=== PATIENT | male | born 1940 | race Caucasian/White ===

== ENCOUNTER 2016-06-11 21:33 | Emergency (ER) | payer OTHER ==
[~2016-06-11 21:33] MED LIST: CARDIZEM C1 PO; COUMADIN5 MG PO; DYAZIDE1 CAP PO; ENDOCET1 TA3 PO; LASIX20 MG PO; LOVENOX150 MG/ML SC; METFORMIN HCL500 M3; NEURONTIN300 MG PO; PANTOPRAZOLE SO40 MG PO; PROAIR HFA IN; ZESTRIL5 MG PO
--- NOTE | 2016-06-11 23:02 | DIAGNOSTIC IMAGING REPORT ---
PROCEDURE: XR CHEST 1 VIEW INDICATION: SHORTNESS OF BREATH, initial encounter TECHNIQUE: Portable AP view 10:44 p.m. COMPARISON: Chest x-ray 05/30/2016 FINDINGS: Stable moderate elevation of the left hemidiaphragm with left basilar atelectasis. Right lung is clear. Left heart border obscured by the elevated hemidiaphragm. Normal pulmonary vascularity. Severe dextroscoliosis. No significant interval change. IMPRESSION: 1. Stable chest 2. Elevated left hemidiaphragm
--- NOTE | 2016-06-12 00:52 | ED CLINICAL REPORT ---
Clinical Report - Physicians/Mid Levels [facility] [address] [place] [address] 06/11/2016 21:35 Patient: SERENA CURIEL Time Seen: 21:37. Arrived- By private vehicle. Historian- patient. HISTORY OF PRESENT ILLNESS Chief Complaint: DYSPNEA and palpitations. This started just prior to arrival and is still present. The dyspnea is described as mild. (nothing improves or worsens). No cough, sputum production, fever, sweating episodes or wheezing. No chills, dyspnea on exertion, chest pain or discomfort or calf pain. No foot swelling, orthopnea, anxiety, dizziness or tingling. No numbness. The patient has had palpitations. (Pt states that sx have improved since the last time he was seen here, when he was started on digoxin, and had a long-acting diltiazem preparation added to his regimen. He states he came in tonight, because he felt his HR had gone up, and wanted to "catch it early."). Similar symptoms previously: Several times. ( PT is in the midst of work-up for atrial flutter, and is scheduled to see a it account manager next week.). Recent medical care: The patient was seen recently at this facility in the emergency department. REVIEW OF SYSTEMS The patient has not had weight loss. No muscle aches, eye irritation, sore throat, nasal discharge or sinus drainage. No nausea, vomiting, abdominal pain, diarrhea or black stools. No bloody stools, headache, fainting episodes, blurred vision or difficulty with urination. No skin rash, enlarged lymph nodes or joint pain. All systems otherwise negative, except as recorded above. PAST HISTORY Problems: Atrial Flutter. Scoliosis. Hypertension. Back Pain. Additional Surgeries: Gastric Bypass. Neck Surgery. Total Hip Replacement. Medications: Diltiazem HCl Oral. Dyazide Oral (Capsule 37.5-25 mg) 1 capsule, daily. Endocet Oral (Tablet 10-325 mg) 1 tablet, 4 x daily. Furosemide Oral. Gabapentin Oral. Lisinopril Oral 5 mg, daily. MetFORMIN HCl Oral. Oxycodone-Acetaminophen Oral 10/325 mg, 4x a day. Pantoprazole Sodium Oral. Pravastatin Sodium Oral. ProAir HFA Inhalation. Triamterene-HCTZ Oral. Warfarin Sodium Oral. Allergies: No Known Drug Allergy. SOCIAL HISTORY Never smoker. No alcohol use or drug use. ADDITIONAL NOTES The nursing notes have been reviewed. PHYSICAL EXAM Vital Signs: 06/11/2016 21:39 BP: 147/85. HR: 62. RR: 20. O2 saturation: 97%. Temp: 97.9 F. Pain level now: 12/19. Have been reviewed. Appearance: Alert. No acute distress. Eyes: Pupils equal, round and reactive to light. Eyes normal inspection. ENT: Nose normal. Neck: Normal inspection. Neck supple. CVS: Tachycardia. Abnormal rhythm, which is irregularly irregular. Heart sounds normal. Pulses normal. Respiratory: No respiratory distress. Breath sounds normal. Abdomen: Soft and nontender. Back: Normal inspection. No CVA tenderness. Skin: Skin warm and dry. Normal skin color. No rash. Normal skin turgor. Extremities: Extremities exhibit normal ROM. No lower extremity edema. Neuro: Oriented X 3. No motor deficit. No sensory deficit. LABS, X-RAYS, AND EKG EKG: Atrial flutter. Tachycardia. Abnormal P waves. Left anterior fascicular block. RBBB. Normal axis. Normal ST and T waves, QT and QTc. Prior EKG unavailable. The study has been interpreted contemporaneously by me. The study has been independently viewed by me. The EKG appears to be a good tracing. I agree with and confirm the computer reading of the EKG. Rhythm Strip #1: Time: (5277). Rate= 107. Atrial flutter. Irregularly irregular rhythm. No ectopy. Conduction normal. Normal ST segments and T waves. The study was interpreted by me. Chest X-ray: No acute disease. Normal lung markings present. Normal heart size. Mediastinum normal. Great vessels normal. Soft tissues normal. No infiltrate. No fracture. No bony lesion present. Views: AP (portable). Technique: good. The X-rays were independently viewed by me and interpreted contemporaneously by me. Prior films were not available for comparison. Laboratory Tests: CBC w Diff: (ROSEMARIE: 06/11/2016 22:00) ( MsgRcvd 06/11/2016 22:41) Final results Test Result Flag Units (Reference) WHITE BLOOD COUNT 9.1 K/uL (4.5-11.5) RED BLOOD COUNT 5.82 M/uL (4.50-5.90) HEMOGLOBIN 15.0 gm/dL (13.5-17.5) HEMATOCRIT 47.5 % (41.0-53.0) MEAN CELL VOLUME 82 fL (80-100) MEAN CORPUSCULAR HGB 26 pg (26-34) MEAN CORPUSCULAR HGB CONC 32 g/dL (31-37) RED CELL DISTRIBUTION WIDTH 15.5 H % (11.6-14.8) PLATELET COUNT 288 K/uL (150-400) NEUTROPHIL % 69.5 % (50-75) LYMPH % 19.6 L % (25-40) MONO % 9.4 % (3-14) EOSINOPHIL % 1.1 % (0-4) BASOPHIL % 0.4 % (0-2) BNP: (ROSEMARIE: 06/11/2016 22:00) ( [facility] 06/11/2016 22:53) Final results Test Result Flag Units (Reference) B-TYPE NATRIURETIC PEPTIDE 97.6 pg/ml (5-100) CHEM 13 PANEL: (ROSEMARIE: 06/11/2016 22:00) ( [facility] 06/11/2016 23:00) Final results Test Result Flag Units (Reference) GLUCOSE 121 H mg/dL (70-110) BUN 29 H mg/dL (7-18) CREATININE 1.2 mg/dL (0.6-1.3) Estimated GFR >60 mL/min Estimated GFR- >60 mL/min Note: Persistent reduction over 3 months in eGFR<60 mL/min/1.73 m2 defines CKD. Patients with eGFR values>=60 mL/min/1.73 m2 may also have CKD if evidence ofpersistent proteinuria. Additional information may be foundat www.kidney.org. SODIUM 142 mmol/L (136-145) POTASSIUM 4.1 mmol/L (3.5-5.1) CHLORIDE 103 mmol/L (98-107) CARBON DIOXIDE 30 mmol/L (21-32) CALCIUM 9.1 mg/dL (8.5-10.1) TOTAL PROTEIN 7.5 g/dL (6.4-8.2) ALBUMIN 3.6 g/dL (3.3-5.0) BILIRUBIN, TOTAL 0.4 mg/dL (0.0-1.0) ALKALINE PHOSPHATASE 79 U/L (46-116) AST (SGOT) 19 U/L (15-37) ALT (SGPT) 33 U/L (12-78) MAGNESIUM 2.0 mg/dL (1.8-2.4) CPK 45 U/L (24-260) TROPONIN I <0.05 ng/mL (0.00-1.5) TROPONIN REFERENCE RANGE:<0.1 NEGATIVE0.1-1.5 INDETERMINANT>1.5 POSITIVE . Pulse Oximetry: 06/11/2016 21:39 O2 saturation: 97%. (FIO2 - room air). Interpretation: normal. PROGRESS AND PROCEDURES Course of Care: PT was treated with a single dose of IV diltiazem, and observed in the ED. His HR had been minimally elevated, and responded well to the medication. No further emergent condition identified. Patient counseled in person regarding the patient's stable condition, test results, diagnosis and need for follow-up. Concerns were addressed. Old medical records reviewed. Disposition: Discharged. Condition: stable and improved. CLINICAL IMPRESSION Chronic atrial fibrillation with uncontrolled rate. INSTRUCTIONS Warnings: GENERAL WARNINGS: Return or contact your physician immediately if your condition worsens or changes unexpectedly, if not improving as expected, or if other problems arise. Your Current Medications: CONTINUE TAKING THE FOLLOWING MEDICATIONS: Diltiazem HCl Oral. Dyazide Oral : Capsule 37.5-25 mg, 1 capsule daily. Endocet Oral : Tablet 10-325 mg, 1 tablet 4 x daily. Furosemide Oral. Gabapentin Oral. Lisinopril Oral : 5 mg daily. MetFORMIN HCl Oral. Oxycodone-Acetaminophen Oral : 10/325 mg 4x a day. Pantoprazole Sodium Oral. Pravastatin Sodium Oral. ProAir HFA Inhalation. Triamterene-HCTZ Oral. Warfarin Sodium Oral. Follow-up: Follow up with a it account manager as scheduled. Understanding of the discharge instructions verbalized by patient. (Electronically signed by Beth Demarco MD 06/16/2016 7:07)
--- NOTE | 2016-06-12 00:52 | ED CLINICAL REPORT ---
Clinical Report - Physicians/Mid Levels [facility] [address] [place] [address] 06/11/2016 21:35 Patient: SERENA CURIEL Time Seen: 21:37. Arrived- By private vehicle. Historian- patient. HISTORY OF PRESENT ILLNESS Chief Complaint: DYSPNEA and palpitations. This started just prior to arrival and is still present. The dyspnea is described as mild. (nothing improves or worsens). No cough, sputum production, fever, sweating episodes or wheezing. No chills, dyspnea on exertion, chest pain or discomfort or calf pain. No foot swelling, orthopnea, anxiety, dizziness or tingling. No numbness. The patient has had palpitations. (Pt states that sx have improved since the last time he was seen here, when he was started on digoxin, and had a long-acting diltiazem preparation added to his regimen. He states he came in tonight, because he felt his HR had gone up, and wanted to "catch it early."). Similar symptoms previously: Several times. ( PT is in the midst of work-up for atrial flutter, and is scheduled to see a electric motor repairer next week.). Recent medical care: The patient was seen recently at this facility in the emergency department. REVIEW OF SYSTEMS The patient has not had weight loss. No muscle aches, eye irritation, sore throat, nasal discharge or sinus drainage. No nausea, vomiting, abdominal pain, diarrhea or black stools. No bloody stools, headache, fainting episodes, blurred vision or difficulty with urination. No skin rash, enlarged lymph nodes or joint pain. All systems otherwise negative, except as recorded above. PAST HISTORY Problems: Atrial Flutter. Scoliosis. Hypertension. Back Pain. Additional Surgeries: Gastric Bypass. Neck Surgery. Total Hip Replacement. Medications: Diltiazem HCl Oral. Dyazide Oral (Capsule 37.5-25 mg) 1 capsule, daily. Endocet Oral (Tablet 10-325 mg) 1 tablet, 4 x daily. Furosemide Oral. Gabapentin Oral. Lisinopril Oral 5 mg, daily. MetFORMIN HCl Oral. Oxycodone-Acetaminophen Oral 10/325 mg, 4x a day. Pantoprazole Sodium Oral. Pravastatin Sodium Oral. ProAir HFA Inhalation. Triamterene-HCTZ Oral. Warfarin Sodium Oral. Allergies: No Known Drug Allergy. SOCIAL HISTORY Never smoker. No alcohol use or drug use. ADDITIONAL NOTES The nursing notes have been reviewed. PHYSICAL EXAM Vital Signs: 06/11/2016 21:39 BP: 147/85. HR: 62. RR: 20. O2 saturation: 97%. Temp: 97.9 F. Pain level now: 12/19. Have been reviewed. Appearance: Alert. No acute distress. Eyes: Pupils equal, round and reactive to light. Eyes normal inspection. ENT: Nose normal. Neck: Normal inspection. Neck supple. CVS: Tachycardia. Abnormal rhythm, which is irregularly irregular. Heart sounds normal. Pulses normal. Respiratory: No respiratory distress. Breath sounds normal. Abdomen: Soft and nontender. Back: Normal inspection. No CVA tenderness. Skin: Skin warm and dry. Normal skin color. No rash. Normal skin turgor. Extremities: Extremities exhibit normal ROM. No lower extremity edema. Neuro: Oriented X 3. No motor deficit. No sensory deficit. LABS, X-RAYS, AND EKG EKG: Atrial flutter. Tachycardia. Abnormal P waves. Left anterior fascicular block. RBBB. Normal axis. Normal ST and T waves, QT and QTc. Prior EKG unavailable. The study has been interpreted contemporaneously by me. The study has been independently viewed by me. The EKG appears to be a good tracing. I agree with and confirm the computer reading of the EKG. Rhythm Strip #1: Time: (8693). Rate= 107. Atrial flutter. Irregularly irregular rhythm. No ectopy. Conduction normal. Normal ST segments and T waves. The study was interpreted by me. Chest X-ray: No acute disease. Normal lung markings present. Normal heart size. Mediastinum normal. Great vessels normal. Soft tissues normal. No infiltrate. No fracture. No bony lesion present. Views: AP (portable). Technique: good. The X-rays were independently viewed by me and interpreted contemporaneously by me. Prior films were not available for comparison. Laboratory Tests: CBC w Diff: (ROSEMARIE: 06/11/2016 22:00) ( MsgRcvd 06/11/2016 22:41) Final results Test Result Flag Units (Reference) WHITE BLOOD COUNT 9.1 K/uL (4.5-11.5) RED BLOOD COUNT 5.82 M/uL (4.50-5.90) HEMOGLOBIN 15.0 gm/dL (13.5-17.5) HEMATOCRIT 47.5 % (41.0-53.0) MEAN CELL VOLUME 82 fL (80-100) MEAN CORPUSCULAR HGB 26 pg (26-34) MEAN CORPUSCULAR HGB CONC 32 g/dL (31-37) RED CELL DISTRIBUTION WIDTH 15.5 H % (11.6-14.8) PLATELET COUNT 288 K/uL (150-400) NEUTROPHIL % 69.5 % (50-75) LYMPH % 19.6 L % (25-40) MONO % 9.4 % (3-14) EOSINOPHIL % 1.1 % (0-4) BASOPHIL % 0.4 % (0-2) BNP: (ROSEMARIE: 06/11/2016 22:00) ( [facility] 06/11/2016 22:53) Final results Test Result Flag Units (Reference) B-TYPE NATRIURETIC PEPTIDE 97.6 pg/ml (5-100) CHEM 13 PANEL: (ROSEMARIE: 06/11/2016 22:00) ( [facility] 06/11/2016 23:00) Final results Test Result Flag Units (Reference) GLUCOSE 121 H mg/dL (70-110) BUN 29 H mg/dL (7-18) CREATININE 1.2 mg/dL (0.6-1.3) Estimated GFR >60 mL/min Estimated GFR- >60 mL/min Note: Persistent reduction over 3 months in eGFR<60 mL/min/1.73 m2 defines CKD. Patients with eGFR values>=60 mL/min/1.73 m2 may also have CKD if evidence ofpersistent proteinuria. Additional information may be foundat www.kidney.org. SODIUM 142 mmol/L (136-145) POTASSIUM 4.1 mmol/L (3.5-5.1) CHLORIDE 103 mmol/L (98-107) CARBON DIOXIDE 30 mmol/L (21-32) CALCIUM 9.1 mg/dL (8.5-10.1) TOTAL PROTEIN 7.5 g/dL (6.4-8.2) ALBUMIN 3.6 g/dL (3.3-5.0) BILIRUBIN, TOTAL 0.4 mg/dL (0.0-1.0) ALKALINE PHOSPHATASE 79 U/L (46-116) AST (SGOT) 19 U/L (15-37) ALT (SGPT) 33 U/L (12-78) MAGNESIUM 2.0 mg/dL (1.8-2.4) CPK 45 U/L (24-260) TROPONIN I <0.05 ng/mL (0.00-1.5) TROPONIN REFERENCE RANGE:<0.1 NEGATIVE0.1-1.5 INDETERMINANT>1.5 POSITIVE . Pulse Oximetry: 06/11/2016 21:39 O2 saturation: 97%. (FIO2 - room air). Interpretation: normal. PROGRESS AND PROCEDURES Course of Care: PT was treated with a single dose of IV diltiazem, and observed in the ED. His HR had been minimally elevated, and responded well to the medication. No further emergent condition identified. Patient counseled in person regarding the patient's stable condition, test results, diagnosis and need for follow-up. Concerns were addressed. Old medical records reviewed. Disposition: Discharged. Condition: stable and improved. CLINICAL IMPRESSION Chronic atrial fibrillation with uncontrolled rate. INSTRUCTIONS Warnings: GENERAL WARNINGS: Return or contact your physician immediately if your condition worsens or changes unexpectedly, if not improving as expected, or if other problems arise. Your Current Medications: CONTINUE TAKING THE FOLLOWING MEDICATIONS: Diltiazem HCl Oral. Dyazide Oral : Capsule 37.5-25 mg, 1 capsule daily. Endocet Oral : Tablet 10-325 mg, 1 tablet 4 x daily. Furosemide Oral. Gabapentin Oral. Lisinopril Oral : 5 mg daily. MetFORMIN HCl Oral. Oxycodone-Acetaminophen Oral : 10/325 mg 4x a day. Pantoprazole Sodium Oral. Pravastatin Sodium Oral. ProAir HFA Inhalation. Triamterene-HCTZ Oral. Warfarin Sodium Oral. Follow-up: Follow up with a electric motor repairer as scheduled. Understanding of the discharge instructions verbalized by patient. (Electronically signed by Beth Demarco MD 06/16/2016 7:07)
--- NOTE | 2016-06-12 00:52 | ED NURSING NOTES ---
Clinical Report - Nurses [facility] [address] [place] [address] 06/11/2016 21:35 Patient: SERENA CURIEL TRIAGE Triage time 21:39 Jun 11 2016. Acuity: LEVEL 3. Chief Complaint: SHORTNESS OF BREATH. 21:43 06/11/16. Alert. No acute distress. SEPSIS SCREEN: Sepsis Screen. Negative (no infection suspected/documented). --21:43 Meghana Day R.N. 21:39 06/11/16. BP: 147/85. HR: 62. RR: 20. O2 saturation: 97% on room air. Temp: 97.9 F. Pain level now: 12/19. Additional comments: pt c/o back pain. --21:43 Meghana Day R.N. Weight: 108.8 kg stated. Height/Length: 67 inches Per Patient. BMI: 37.6. --21:42 Meghana Day R.N. Medications Diltiazem HCl Oral. Dyazide Oral (Capsule 37.5-25 mg) 1 capsule, daily. Endocet Oral (Tablet 10-325 mg) 1 tablet, 4 x daily. Furosemide Oral. Gabapentin Oral. Lisinopril Oral 5 mg, daily. MetFORMIN HCl Oral. Oxycodone-Acetaminophen Oral 10/325 mg, 4x a day. Pantoprazole Sodium Oral. Pravastatin Sodium Oral. ProAir HFA Inhalation. Triamterene-HCTZ Oral. Warfarin Sodium Oral. --21:40 Meghana Day R.N. Medication/allergy information source: the patient. --21:43 Meghana Day R.N. Allergies No Known Drug Allergy. --21:40 Meghana Day R.N. History Arrived by private vehicle. This started yesterday. ( pt states he was here 2 x last week for same). ( sob. pt denies cp or any other symptoms at this time). 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 PAST MEDICAL HX: Hypertension. Immunizations: up-to-date. SOCIAL HX: Former smoker. No alcohol use or drug use. FALL RISK ASSESSMENT: Fall risk assessment completed. No fall risk identified. NUTRITIONAL RISK ASSESSMENT: The nutritional risk assessment revealed no deficiencies. FUNCTIONAL ASSESSMENT: Functional assessment: no impairments noted. LEARNING NEEDS ASSESSMENT: The learning needs assessment revealed no barriers. SKIN INTEGRITY ASSESSMENT: Skin integrity risk assessment completed. No skin integrity risk identified. --21:43 Meghana Day R.N. PROBLEMS: Atrial Flutter. Scoliosis. Hypertension. Back Pain. --21:41 Meghana Day R.N. ADDITIONAL SURGERIES: Gastric Bypass. Neck Surgery. Total Hip Replacement. --21:41 Meghana Day R.N. Interventions ID band on patient. To treatment room. --21:43 Meghana Day R.N. PHYSICAL ASSESSMENT 21:45 06/11/16. Ambulatory to room. Patient gowned. GENERAL / NEURO / PSYCH: Alert. Oriented X 4. Appears in no acute distress. HEENT: Mucous membranes are pink. RESPIRATORY: No respiratory distress. The patient can speak in full sentences. Chest nontender. Breath sounds within normal limits. CVS: Cardiac rhythm: atrial flutter. Capillary refill less than 2 seconds. GI / : Abdomen soft and nontender. Bowel sounds within normal limits. SKIN: Skin is warm and dry. Normal skin turgor. --21:45 Meghana Day R.N. NURSING PROGRESS NOTES 21:45 06/11/16. The plan of care for this patient has been created. Oxygen administered. Monitoring of patient in place. Patient gowned. Head of bed elevated. Reassurance given. Two patient identifiers checked. Call light placed in reach. Side rails up x 2. Bed placed in lowest position. Brakes of bed on. Patient ready for evaluation- ED physician notified. --21:45 Meghana Day R.N. 22:00 06/11/2016 Site #1 started via IV in the right antecubital space with an 20g angiocath, with aseptic technique and good blood return; one attempt. Blood drawn: rainbow set. Labeled in the presence of the patient and sent to the lab. Saline lock flushed with 5 mL saline. --22:00 Meghana Dya R.N. EKG time: (22:00 Dec 31 2016). EKG was performed by a tech and shown to the ED physician. --22:00 Meghana Day R.N. 22:00 06/11/16. BP: 135/80. HR: 104. RR: 18. O2 saturation: 98% on nasal cannula at 2 liters/minute. --22:00 Meghana Day R.N. The patient is calm and resting quietly. RESPIRATORY: No respiratory distress. Breath sounds normal. CVS: Cardiac rhythm: atrial flutter. SKIN: Skin is warm and dry. Skin color within normal limits. --22:01 Meghana Day R.N. 22:23 06/11/16. BP: 126/59. HR: 104. RR: 18. O2 saturation: 97% on nasal cannula at 2 liters/minute. --22:24 Meghana Day R.N. The patient is calm and resting quietly. RESPIRATORY: No respiratory distress. Breath sounds normal. CVS: Cardiac rhythm: atrial flutter. SKIN: Skin is warm and dry. Skin color within normal limits. --22:24 Meghana Day R.N. 22:34 06/11/2016 Diltiazem IVP 20 mg given over 5 minute(s) via site #1. Allergies verified and confirmed 5 rights. IV patency established. IV site checked: no pain, redness, or swelling. IV flushed thoroughly pre- and post-medication administration. IVP given by RN. --22:34 Meghana Day R.N. 22:45 06/11/16. BP: 114/69. HR: 79. RR: 18. O2 saturation: 97% on nasal cannula at 2 liters/minute. --22:46 Meghana Day R.N. The patient reports no complaints and he is calm and resting quietly. Overall patient status is improved- he states feels better. RESPIRATORY: No respiratory distress. Breath sounds normal. CVS: Normal sinus rhythm noted. SKIN: Skin is warm and dry. Skin color within normal limits. --23:36 Meghana Day R.N. 23:35 06/11/16. BP: 123/76. HR: 81. RR: 18. O2 saturation: 98% on nasal cannula at 2 liters/minute. --23:36 Meghana Day R.N. 00:29 06/12/16. RESPIRATORY: No respiratory distress. Breath sounds normal. CVS: Normal sinus rhythm noted. SKIN: Skin is warm and dry. Skin color within normal limits. --00:29 Meghana Day R.N. 00:28 06/12/16. BP: 113/57. HR: 99. RR: 18. O2 saturation: 98% on room air. --00:29 Meghana Day R.N. 00:54 06/12/16. RESPIRATORY: No respiratory distress. Breath sounds normal. CVS: Cardiac rhythm: atrial flutter. SKIN: Skin is warm and dry. Skin color within normal limits. --00:54 Meghana Day R.N. 00:52 06/12/16. BP: 130/61. HR: 79. RR: 18. O2 saturation: 97% on nasal cannula at 2 liters/minute. --00:54 Meghana Day R.N. DISPOSITION / DISCHARGE 01:03 06/12/16. Departure time: 01:Jun 12 2016. Condition at departure: improved. The goals identified in the patient's plan of care were met. No learning barriers present. Discharge instructions provided and reviewed with the patient. Reviewed medication(s). Verbalized understanding. Written instructions provided in Slovak. The patient was discharged by the physician. He was discharged home. He left the Emergency Department ambulatory and via private vehicle. Patient driving. --01:03 Meghana Day R.N. 00:52 06/12/16. BP: 130/61. HR: 79. RR: 18. O2 saturation: 97% on nasal cannula at 2 liters/minute. 00:28 06/12/16. BP: 113/57. HR: 99. RR: 18. O2 saturation: 98% on room air. 23:35 06/11/16. BP: 123/76. HR: 81. RR: 18. O2 saturation: 98% on nasal cannula at 2 liters/minute. 22:45 06/11/16. BP: 114/69. HR: 79. RR: 18. O2 saturation: 97% on nasal cannula at 2 liters/minute. 22:23 06/11/16. BP: 126/59. HR: 104. RR: 18. O2 saturation: 97% on nasal cannula at 2 liters/minute. 22:00 06/11/16. BP: 135/80. HR: 104. RR: 18. O2 saturation: 98% on nasal cannula at 2 liters/minute. 21:39 06/11/16. BP: 147/85. HR: 62. RR: 20. O2 saturation: 97% on room air. Temp: 97.9 F. Pain level now: 12/19. Additional comments: pt c/o back pain. --01:03 Meghana Day R.N. 01:03 06/12/2016 Site #1 removed upon discharge. Bandaid applied. --01:03 Meghana Day R.N. Locked/Released at 06/12/2016 1:04 by Meghana Day R.N.
--- NOTE | 2016-06-12 00:52 | ED ORDER SUMMARY ---
..... Patient: SERENA CURIEL OrderSheet [facility] VisitID: [id number] [address] [place] [address] 75y, M Registration Date/Time: 06/11/2016 ORDER SHEET Weight: 108.8 kg (stated) Allergies: No Known Drug Allergy GENERAL ORDERS: Chest 1V Urgent (22:26 06/11/2016 rAabella JACKSON) (Ack 22:30 OSnell) (23:16 RFay) Feather Duster Winder (Continuous) (22:26 06/11/2016 Arabella JACKSON) (22:27 ABvalencia R.N.) Cardiac Panel Stat (22:27 06/11/2016 Arabella JACKSON) (22:27 ABvalencia R.N.) BNP Urgent (22:27 06/11/2016 Arabella JACKSON) (22:27 ABfelixnsmichael R.N.) EKG - ER Stat (22:27 06/11/2016 Arabella JACKSON) (22:27 ABvalencia R.N.) Pulse oximeter (22:27 06/11/2016 Arabella JACKSON) (22:27 Jani R.N.) Oxygen (2 L/min) (NC) (22:27 06/11/2016 Arabella JACKSON) (22:27 ABvalencia R.N.) MEDICATION ORDERS: IV FLUIDS: Diltiazem IV 20 mg (HIGH ALERT MEDICATION, NOW) (22:26 06/11/2016 Arabella JACKSON) (22:34 ABvalencia R.N.) IV Saline Lock (22:27 06/11/2016 Arabella JACKSON) (22:34 Jani R.N.) ORDER SHEET NOTES: [Electronically signed by Meghana Day R.N. (01:04 06/12/2016)] [Electronically signed by Beth Demarco MD (07:07 06/16/2016)] [Electronically locked/signed by Meghana Day R.N. (01:04 06/12/2016)]
--- NOTE | 2016-06-12 00:52 | ED ORDER SUMMARY ---
..... Patient: SERENA CURIEL OrderSheet Located Within [facility] VisitID: [id number] [address] [place] [address] 75y, M Registration Date/Time: 06/11/2016 ORDER SHEET Weight: 108.8 kg (stated) Allergies: No Known Drug Allergy GENERAL ORDERS: Chest 1V Urgent (22:26 06/11/2016 Arabella JACKSON) (Ack 22:30 OSnell) (23:16 RFay) Pharmaceutical Development Technician (Continuous) (22:26 06/11/2016 Arabella JACKSON) (22:27 ABvalencia R.N.) Cardiac Panel Stat (22:27 06/11/2016 Arabella JACKSON) (22:27 ABvalencia R.N.) BNP Urgent (22:27 06/11/2016 Arabella JACKSON) (22:27 ABfelixnsmichael R.N.) EKG - ER Stat (22:27 06/11/2016 Arabella JACKSON) (22:27 ABvalencia R.N.) Pulse oximeter (22:27 06/11/2016 Arabella JACKSON) (22:27 Jani R.N.) Oxygen (2 L/min) (NC) (22:27 06/11/2016 Arabella JACKSON) (22:27 ABvalencia R.N.) MEDICATION ORDERS: IV FLUIDS: Diltiazem IV 20 mg (HIGH ALERT MEDICATION, NOW) (22:26 06/11/2016 Arabella JACKSON) (22:34 ABvalencia R.N.) IV Saline Lock (22:27 06/11/2016 Arabella JACKSON) (22:34 Jani R.N.) ORDER SHEET NOTES: [Electronically signed by Meghana Day R.N. (01:04 06/12/2016)] [Electronically signed by Beth Demarco MD (07:07 06/16/2016)] [Electronically locked/signed by Meghana Day R.N. (01:04 06/12/2016)]
--- NOTE | 2016-06-16 07:08 | ED DISCHARGE INSTRUCTIONS ---
Patient: SERENA CURIEL General Instructions [facility] VisitID: [id number] [address] [place] [address] 75y, M Registration Date/Time: 06/11/2016 Chronic atrial fibrillation with uncontrolled rate. INSTRUCTIONS Warnings: GENERAL WARNINGS: Return or contact your physician immediately if your condition worsens or changes unexpectedly, if not improving as expected, or if other problems arise. Your Current Medications: CONTINUE TAKING THE FOLLOWING MEDICATIONS: Diltiazem HCl Oral. Dyazide Oral : Capsule 37.5-25 mg, 1 capsule daily. Endocet Oral : Tablet 10-325 mg, 1 tablet 4 x daily. Furosemide Oral. Gabapentin Oral. Lisinopril Oral : 5 mg daily. MetFORMIN HCl Oral. Oxycodone-Acetaminophen Oral : 10/325 mg 4x a day. Pantoprazole Sodium Oral. Pravastatin Sodium Oral. ProAir HFA Inhalation. Triamterene-HCTZ Oral. Warfarin Sodium Oral. Follow-up: Follow up with a machine trimmer as scheduled. Understanding of the discharge instructions verbalized by patient. ADDITIONAL INFORMATION Arrhythmia Electrical impulses cause the normal heart to beat 60 to 100 times a minute. These impulses come from a natural pacemaker deep inside the heart muscle. Each impulse causes the heart muscle to contract. This causes the blood to flow through the heart and out to the tissues and organs of your body. An arrhythmia is a change from the normal speed or pattern of these electrical impulses. This can cause the heart to beat too fast (tachycardia); or too slow (bradycardia); or in an unsteady pattern (irregular rhythm). Symptoms of arrhythmias Different people experience arrhythmias differently. Sometimes they may not have symptoms, but just notice a change in their pulse. Symptoms can include: Fluttering feeling in the chest Shortness of breath Chest pain or pressure Lightheadedness or dizziness Fainting or nearly fainting Palpitations Tiredness, fatigue, or weakness Causes of arrhythmias Arrhythmias are most often due to heart disease such as: Coronary artery disease (arteriosclerosis) Disease of the heart valves Enlarged heart High blood pressure Heart failure Other causes ofarrhythmia include: Certain medicines (such as asthma inhalers and decongestants) Some herbal supplements Cardiac stimulant drugs (such as cocaine, amphetamine, diet pills, certain decongestant cold medicines, caffeine, and nicotine) Excessive alcohol use Medical conditions such as thyroid disease, anemia, anxiety, and panic disorder Arrythmias can often be prevented. The cause and type of arrhythmia determines the best treatment. Sometimes your doctor may want to monitor your heart rate over a 24-hour period or longer. This can help identify the cause of your arrhythmia and find the best treatment. This can be done with a Holter monitor,a portable EKG recording device attached by wires to your chest. You can carry this with you as you perform your routine activities during the monitoring period. Home care Avoid cardiac stimulants (such as cocaine, amphetamine, diet pills, certain decongestant cold medicines, caffeine, and nicotine). If you smoke, stop smoking. Contact your doctor or a local stop-smoking program for help. Tell your doctor about any prescription, [id number] or herbal medicines you take. These may be affecting your heart rhythm. Follow-up care Follow up with your health care provider or as advised by our staff. If a Holter monitor has been recommended, contact the cardiologistyou have been referred toas soon as you canpick up the device. Other outpatient tests may also be arranged for you at that time. Call 911 This is the fastest and safest way to get to the emergency department. The paramedics can also start treatment on the way to the hospital, if needed. Don'twait until your symptoms are severe to call 911. Other reasons to call 911 besides chest pain include: Chest, shoulder, arm, neck, or back pain Shortness of breath Feeling lightheaded, faint, or dizzy Rapid heart beat Slower than usual heart rate compared to your normal Angina withweakness, dizziness, fainting, heavy sweating, nausea, or vomiting Extreme drowsiness, or confusion Weakness of an arm or leg or one side of the face Difficulty with speech or vision When to seek medical care Remember, things are not always like they are on TV. Sometimes it is not so obvious. You may only feel weak or just "not right." If it is not clear or if you have any doubt, call for advice. Seek help for chest pain, or it feels different from usual, even if your symptoms are mild. Do not drive yourself. Have someone else drive. If no one can drive you, call 911. If your doctor has given you medicines to take when you have symptoms, take them, but do not delay getting help while trying to find them. Do not delay. Fast diagnosis and treatment can prevent or limit the amount of heart damage during a heart attack or stroke. Do not go to your doctor's ofice or a clinic because they will not be able to provide all of the testing or treatment required for this condition. You have been given the following additional information: Arrhythmia, Unspecified (Electronically signed by Beth Demarco MD 06/16/2016 7:07)
--- NOTE | 2016-06-16 07:08 | ED MED RECONCILIATION SUMMARY ---
Patient: SERENA CURIEL Medication Reconciliation Report [facility] VisitID: [id number] [address] [place] [address] 75y, M Registration Date/Time: 06/11/2016 Weight: 108.8 kg Height/Length: 67 in. BMI: 37.6 ALLERGIES: No Known Drug Allergy The patient's Home Medications are listed below: CONTINUE TAKING THE FOLLOWING MEDICATIONS: Diltiazem HCl Oral Dyazide Oral (37.5-25 mg) 1 capsule, daily Endocet Oral (10-325 mg) 1 tablet, 4 x daily Furosemide Oral Gabapentin Oral Lisinopril Oral 5 mg, daily MetFORMIN HCl Oral Oxycodone-Acetaminophen Oral 10/325 mg, 4x a day Pantoprazole Sodium Oral Pravastatin Sodium Oral ProAir HFA Inhalation Triamterene-HCTZ Oral Warfarin Sodium Oral The source(s) of the original Home Medication information: patient The following Medications were given to the patient in the Emergency Department: Diltiazem [IVP] IVP 20 mg, administered: 06/11/2016 10:34:00 PM The following Medications were prescribed to the patient: None.
--- NOTE | 2016-06-16 07:08 | ED MED RECONCILIATION SUMMARY ---
Patient: SERENA CUIREL Medication Reconciliation Report [facility] VisitID: [id number] [address] [place] [address] 75y, M Registration Date/Time: 06/11/2016 Weight: 108.8 kg Height/Length: 67 in. BMI: 37.6 ALLERGIES: No Known Drug Allergy The patient's Home Medications are listed below: CONTINUE TAKING THE FOLLOWING MEDICATIONS: Diltiazem HCl Oral Dyazide Oral (37.5-25 mg) 1 capsule, daily Endocet Oral (10-325 mg) 1 tablet, 4 x daily Furosemide Oral Gabapentin Oral Lisinopril Oral 5 mg, daily MetFORMIN HCl Oral Oxycodone-Acetaminophen Oral 10/325 mg, 4x a day Pantoprazole Sodium Oral Pravastatin Sodium Oral ProAir HFA Inhalation Triamterene-HCTZ Oral Warfarin Sodium Oral The source(s) of the original Home Medication information: patient The following Medications were given to the patient in the Emergency Department: Diltiazem [IVP] IVP 20 mg, administered: 06/11/2016 10:34:00 PM The following Medications were prescribed to the patient: None.
--- NOTE | 2016-06-16 07:08 | ED MAR SUMMARY ---
..... Medication Administration Record [facility] [address] [place] [address] Patient: SERENA CURIEL Visit ID: [id number] 75y, M Weight: 108.8 kg Height/Length: 67 in BMI: 37.6 ALLERGIES: No Known Drug Allergy Given 22:34 06/11/2016 Meghana Day R.N. Medication Administered: DILTIAZEM [IVP], Dose: 20 mg IVP over 5 minute(s), Site: #1 right AC. Medication Ordered: Diltiazem IV 20 mg (HIGH ALERT MEDICATION, NOW).
--- NOTE | 2016-06-16 07:08 | ED MAR SUMMARY ---
..... Medication Administration Record [facility] [address] [place] [address] Patient: SERENA CURIEL Visit ID: [id number] 75y, M Weight: 108.8 kg Height/Length: 67 in BMI: 37.6 ALLERGIES: No Known Drug Allergy Given 22:34 06/11/2016 Meghana Day R.N. Medication Administered: DILTIAZEM [IVP], Dose: 20 mg IVP over 5 minute(s), Site: #1 right AC. Medication Ordered: Diltiazem IV 20 mg (HIGH ALERT MEDICATION, NOW).
== END 2016-06-12 01:03 | disposition home or self-care (01) ==
LOC: ED SRH 21:33
DX: I48.2 Chronic atrial fibrillation (principal); I10 Essential (primary) hypertension; Z79.01 Long term (current) use of anticoagulants; Z79.84 Long term (current) use of oral hypoglycemic drugs; Z79.891 Long term (current) use of opiate analgesic; Z79.899 Other long term (current) drug therapy
CPT/HCPCS: 90100; 90616; 91320; 92610; 92720; 95059

== ENCOUNTER 2016-06-26 06:03 | Emergency (ER) | payer OTHER ==
--- NOTE | 2016-06-26 08:36 | DIAGNOSTIC IMAGING REPORT ---
PROCEDURE: XR CHEST 1 VIEW INDICATION: CHEST PAIN TECHNIQUE: Portable AP view (0635 hours). COMPARISON: Compared to chest x-rays (06/11/2016, 05/30/2016, 02/15/2015. FINDINGS: Stable chronic elevation of the left hemidiaphragm with chronic left basilar volume loss. Allowing for suboptimal inspiration, findings suggest mild cardiomegaly with pulmonary vascular congestion and interstitial changes. Mediastinum is normal. Marked dextroscoliosis of the mid-thoracic spine. IMPRESSION: 1. Chronic elevation left hemidiaphragm with chronic left basilar volume loss. 2. Findings suggest mild cardiomegaly, congestion, and interstitial changes. Findings may be a reflection of suboptimal inspiration, consider mild congestive heart failure. 3. Findings discussed with Dr. Chava Mcneill.
--- NOTE | 2016-06-26 09:02 | ED ORDER SUMMARY ---
..... Patient: SERENA CURIEL OrderSheet [facility] VisitID: [id number] [place] [address] 76y, M Registration Date/Time: 06/26/2016 ORDER SHEET Weight: 104.3 kg (stated) Allergies: No Known Drug Allergy GENERAL ORDERS: Laborer/Key Man (Continuous) (CP SOB) (:06/26/2016 Mikhail Aguirre) (6:28 JDeElena R.N.) CBC w Diff Urgent (:06/26/2016 Mikhail Aguirre) (Ack 6:30 JDeElena R.N.) (6:30 JDeElena R.N.) CMP Urgent (:06/26/2016 Mikhail Aguirre) (Ack 6:30 JDeElena R.N.) (6:30 JDeElena R.N.) BNP Urgent (:06/26/2016 Mikhail Aguirre) (Ack 6:30 JDeElena R.N.) (6:30 JDeElena R.N.) Troponin-I Urgent (:06/26/2016 Mikhail Aguirre) (Ack 6:30 JDeElena R.N.) (6:30 JDeElena R.N.) PT with INR Urgent (:06/26/2016 Mikhail Aguirre) (Ack 6:30 JDeElena R.N.) (6:30 JDeElena R.N.) D-Dimer Urgent (:06/26/2016 Mikhail Aguirre) (Ack 6:30 JDeElena R.N.) (6:30 JDeElena R.N.) Pulse oximeter (:06/26/2016 Mikhail Aguirre) (6:28 JDeElena R.N.) EKG - ER Stat (:06/26/2016 Mikhail Aguirre) (6:28 JDeElena R.N.) Chest 1V Urgent (:06/26/2016 Mikhail Aguirre) (Ack 6:30 JDeElena R.N.) (6:38 JBullard R.N.) PTT Urgent (07:23 06/26/2016 Mikhail Aguirre) (Ack 7:58 RKaruga) (8:29 MWinterer R.N.) Troponin-I (draw 2 hours after first draw) Urgent (07:28 06/26/2016 Mikhail Aguirre) (Ack 7:59 RKaruga) (8:29 MWinterer R.N.) Rapid Influenza Screen (Nasal Pharyngeal) (mucus) Urgent (08:00 06/26/2016 Mikhail Aguirre) (Ack 8:02 RKarfelix) (8:36 MWinterer R.N.) RSV Rapid Screen (Nasal Pharyngeal) (mucus) Urgent (08:00 06/26/2016 Mikhail Aguirre) (Ack 8:02 RKaruga) (8:36 MWinterer R.N.) MEDICATION ORDERS: Aspirin PO 325 mg (Do not crush or chew, NOW) (07:19 06/26/2016 Mikhail Aguirre) (7:22 MWinterer R.N.) Percocet PO 2 tabs (HIGH ALERT MEDICATION, NOW) (09:42 06/26/2016 Mikhail Aguirre) (Ack 9:43 MWinterer R.N.) (9:45 MWinterer R.N.) IV FLUIDS: IV Saline Lock (06:26 06/26/2016 Mikhail Aguirre) (6:28 Joaquin R.N.) Heparin IV : initial bolus 60 units/kg, then none - for X1 (once now. max 5,000 units.) (07:19 06/26/2016 Mikhail Aguirre) (Ack 7:22 MWinterer R.N.) (Cancelled: Change in patient condition7:24 Mikhail Aguirre) Heparin IV : initial bolus none -, then 12 units/kg/hr for 24h (HIGH ALERT MEDICATION, NOW) (07:22 06/26/2016 Mikhail Aguirre) (Cancelled: Change in patient condition7:24 Mikhail Aguirre) Heparin IV : initial bolus 60 units/kg, then none - for X1 (once now. max 5000 u) (08:51 06/26/2016 Mikhail Aguirre) (Ack 9:02 MWinterer R.N.) (Cancelled: Duplicate Order9:05 Mikhail Aguirre) Heparin IV : initial bolus none -, then 12 units/kg/hr for 24h (max 1000 u hr after bolus) (08:52 06/26/2016 Mikhail Aguirre) (Ack 9:02 MWinterer R.N.) (Cancelled: Duplicate Order9:05 Mikhail Aguirre) Lasix IV 20 mg (NOW) (09:11 06/26/2016 Mikhail Aguirre) (Ack 9:21 MWinterer R.N.) (9:33 MWinterer R.N.) ORDER SHEET NOTES: [Electronically signed by Negra Tam R.N. (12:12 06/26/2016)] [Electronically signed by Chava Mcneill Dr. (05:19 06/30/2016)] [Electronically locked/signed by Negra Tam R.N. (12:12 06/26/2016)]
--- NOTE | 2016-06-26 09:02 | ED ORDER SUMMARY ---
..... Patient: SERENA CURIEL OrderSheet [facility] VisitID: [id number] [place] [address] 76y, M Registration Date/Time: 06/26/2016 ORDER SHEET Weight: 104.3 kg (stated) Allergies: No Known Drug Allergy GENERAL ORDERS: Design Assistant (Continuous) (CP SOB) (:06/26/2016 Mikhail Aguirre) (6:28 JDeElena R.N.) CBC w Diff Urgent (:06/26/2016 Mikhail Aguirre) (Ack 6:30 JDeElena R.N.) (6:30 JDeElena R.N.) CMP Urgent (:06/26/2016 Mikhail Aguirre) (Ack 6:30 JDeElena R.N.) (6:30 JDeElena R.N.) BNP Urgent (:06/26/2016 Mikhail Aguirre) (Ack 6:30 JDeElena R.N.) (6:30 JDeElena R.N.) Troponin-I Urgent (:06/26/2016 Mikhail Aguirre) (Ack 6:30 JDeElena R.N.) (6:30 JDeElena R.N.) PT with INR Urgent (:06/26/2016 Mikhail Aguirre) (Ack 6:30 JDeElena R.N.) (6:30 JDeElena R.N.) D-Dimer Urgent (:06/26/2016 Mikhail Aguirre) (Ack 6:30 JDeElena R.N.) (6:30 JDeElena R.N.) Pulse oximeter (:06/26/2016 Mikhail Aguirre) (6:28 JDeElena R.N.) EKG - ER Stat (:06/26/2016 Mikhail Aguirre) (6:28 JDeElena R.N.) Chest 1V Urgent (:06/26/2016 Mikhail Aguirre) (Ack 6:30 JDeElena R.N.) (6:38 JBullard R.N.) PTT Urgent (07:23 06/26/2016 Mikhail Aguirre) (Ack 7:58 RKaruga) (8:29 MWinterer R.N.) Troponin-I (draw 2 hours after first draw) Urgent (07:28 06/26/2016 Mikhail Aguirre) (Ack 7:59 RKaruga) (8:29 MWinterer R.N.) Rapid Influenza Screen (Nasal Pharyngeal) (mucus) Urgent (08:00 06/26/2016 Mikhail Aguirre) (Ack 8:02 RKarfelix) (8:36 MWinterer R.N.) RSV Rapid Screen (Nasal Pharyngeal) (mucus) Urgent (08:00 06/26/2016 Mikhail Aguirre) (Ack 8:02 RKaruga) (8:36 MWinterer R.N.) MEDICATION ORDERS: Aspirin PO 325 mg (Do not crush or chew, NOW) (07:19 06/26/2016 Mikhail Aguirre) (7:22 MWinterer R.N.) Percocet PO 2 tabs (HIGH ALERT MEDICATION, NOW) (09:42 06/26/2016 Mikhail Aguirre) (Ack 9:43 MWinterer R.N.) (9:45 MWinterer R.N.) IV FLUIDS: IV Saline Lock (06:26 06/26/2016 Mikhail Aguirre) (6:28 Joaquin R.N.) Heparin IV : initial bolus 60 units/kg, then none - for X1 (once now. max 5,000 units.) (07:19 06/26/2016 Mikhail Aguirre) (Ack 7:22 MWinterer R.N.) (Cancelled: Change in patient condition7:24 Mikhail Aguirre) Heparin IV : initial bolus none -, then 12 units/kg/hr for 24h (HIGH ALERT MEDICATION, NOW) (07:22 06/26/2016 Mikhail Aguirre) (Cancelled: Change in patient condition7:24 Mikhail Aguirre) Heparin IV : initial bolus 60 units/kg, then none - for X1 (once now. max 5000 u) (08:51 06/26/2016 Mikhail Aguirre) (Ack 9:02 MWinterer R.N.) (Cancelled: Duplicate Order9:05 Mikhail Aguirre) Heparin IV : initial bolus none -, then 12 units/kg/hr for 24h (max 1000 u hr after bolus) (08:52 06/26/2016 Mikhail Aguirre) (Ack 9:02 MWinterer R.N.) (Cancelled: Duplicate Order9:05 Mikhail Aguirre) Lasix IV 20 mg (NOW) (09:11 06/26/2016 Mikhail Aguirre) (Ack 9:21 MWinterer R.N.) (9:33 MWinterer R.N.) ORDER SHEET NOTES: [Electronically signed by Negra Tam R.N. (12:12 06/26/2016)] [Electronically signed by Chava Mcneill Dr. (05:19 06/30/2016)] [Electronically locked/signed by Negra Tam R.N. (12:12 06/26/2016)]
--- NOTE | 2016-06-26 09:02 | ED NURSING NOTES ---
Clinical Report - Nurses [facility] [address] [place] [address] 06/26/2016 6:09 Patient: SERENA CURIEL TRIAGE Triage time 06:15. Acuity: LEVEL 2. Chief Complaint: SHORTNESS OF BREATH and DIFFICULTY BREATHING and (Was just seen in [place], heart cath done on 06/23/2016 went home on 06/24/2016. Was short of breath this AM.). Alert. SEPSIS SCREEN: Sepsis Screen: negative. Negative (no infection suspected/documented). --06:20 Jose Manuel Sow R.N. 06:13 06/26/16. BP: 152/85 (large adult cuff) taken on the right arm, via an automated monitor, while lying. HR: 78 (normal rate). RR: 30 (regular, labored and rapid). O2 saturation: 84% on room air. O2 started via nasal cannula at 2 liters/minute. Temp: 98.1 F (oral). Pain level now: 0/10. --06:20 Jose Manuel Sow R.N. Weight: 104.3 kg stated. Height/Length: 67 inches Per Patient. BMI: 36. --06:15 Jose Manuel Sow R.N. Medications Diltiazem HCl Oral. Dyazide Oral (Capsule 37.5-25 mg) 1 capsule, daily. Endocet Oral (Tablet 10-325 mg) 1 tablet, 4 x daily. Furosemide Oral. Gabapentin Oral. Lisinopril Oral 5 mg, daily. MetFORMIN HCl Oral. Oxycodone-Acetaminophen Oral 10/325 mg, 4x a day. Pantoprazole Sodium Oral. Pravastatin Sodium Oral. ProAir HFA Inhalation. Triamterene-HCTZ Oral. Warfarin Sodium Oral. --06:18 Jose Manuel Sow R.N. Allergies No Known Drug Allergy. --06:18 Jose Manuel Sow R.N. Medication/allergy information source: the patient. --06:20 Jose Manuel Sow R.N. History Arrived by EMS. Historian: patient. Unaccompanied. Primary physician (Dr. Basurto). This started today. He has had fatigue, poor appetite and dizziness. Reports muscle aches and experiencing sweating episodes. No chills, fever, chest pain, abdominal pain or difficulty with urination. No headache. Treatment RESEARCH NEUROPSYCHOLOGIST: None. PAST MEDICAL HX: Immunizations: up-to-date and seasonal influenza. Has not received pneumonia vaccine. SOCIAL HX: Never smoker. No alcohol use or drug use. He has not traveled outside the [place] No infectious disease exposure. ABUSE ASSESSMENT: Abuse assessment: The patient was asked "Do you feel safe in your home?" and "Has anyone hurt you or threatened to hurt you?". No report of abuse. SELF HARM ASSESSMENT: A self harm assessment was performed. The patient answered "no" to the question "Do you have thoughts of harming or killing yourself?" and "Have you recently had thoughts about harming or killing others?". FALL RISK ASSESSMENT: Fall risk assessment completed. No fall risk identified. NUTRITIONAL RISK ASSESSMENT: The nutritional risk assessment revealed no deficiencies. LEARNING NEEDS ASSESSMENT: The learning needs assessment revealed no barriers. FUNCTIONAL ASSESSMENT: Functional assessment performed: wears glasses- this visual impairment is an ongoing problem. SKIN INTEGRITY ASSESSMENT: Skin integrity risk assessment completed. No skin integrity risk identified. --06:20 Jose Manuel Sow R.N. PROBLEMS: Atrial Fibrillation. Atrial Flutter. Scoliosis. Hypertension. Back Pain. --06:18 Jose Manuel Sow R.N. ADDITIONAL SURGERIES: Cardiac Ablation. Gastric Bypass. Neck Surgery. Total Hip Replacement. --06:18 Jose Manuel Sow R.N. Assessment GENERAL / NEURO / PSYCH: Alert. Oriented X 4. Appears in distress. Harlan Coma Scale: 15- eyes open spontaneously (4); best verbal response- oriented x 4 (5); best motor response- obeys commands (6). RESPIRATORY: Moderate respiratory distress. Expiratory bilateral wheezes diffusely and anteriorly. CVS: Cardiac rhythm: normal sinus rhythm. GI / : Obesity. SKIN: Skin is warm and dry. --06:20 Jose Manuel Sow R.N. Interventions ID band on patient. To treatment room. No allergy band on patient. --06:20 Jose Manuel Sow R.N. NURSING PROGRESS NOTES The initial plan of care for this patient has been created This plan of care was discussed with the patient. retail merchandiser technician, pulse oximeter and NIBP monitor placed on patient; contract consultant- Lead II. Patient gowned. Reassurance given to the patient. Two patient identifiers checked. Call light placed in reach. Side rails up x 2. Bed placed in lowest position. Brakes of bed on. Patient ready for evaluation- ED physician notified. --06:21 Jose Manuel Sow R.N. 06:21 06/26/2016 Site #1 started via IV in the left antecubital space with an 20g angiocath, with aseptic technique and good blood return; one attempt. Blood drawn: rainbow set. Labeled in the presence of the patient and sent to the lab. Saline lock flushed with 10 mL saline. --06:21 Jose Manuel Sow R.N. 06:21 06/26/2016 One (1) unsuccessful IV access attempt including the right antecubital space. Applied bandaid, bandage and pressure dressing. --06:21 Jose Manuel Sow R.N. Care transferred and report given (ILEANA Omer). --07:07 Matt Alegre R.N. 07:16 06/26/16. The patient reports no complaints and he is calm and resting quietly. RESPIRATORY: No respiratory distress. ( First contact with patient.). --07:16 Negra Tam R.N. 07:22 06/26/2016 Aspirin PO 325 mg given. Allergies verified and confirmed 5 rights. --07:22 Negra Tam R.N. 07:40 06/26/16. BP: 123/58. HR: 68. RR: 18. O2 saturation: 97% on nasal cannula. --07:40 Negra Tam R.N. 08:36 06/26/16. Checked patient name and birthdate: patient confirmed. RSV nasal swab obtained by RN via nasal swab. Labeled in the presence of the patient and sent to lab. Checked patient name and birthdate: patient confirmed. Flu swab obtained by RN via nasal swab. Labeled in the presence of the patient and sent to lab. --08:36 Negra Tam R.N. 09:33 06/26/2016 Lasix IVP 20 mg given over 2 minute(s) via site #1. Allergies verified and confirmed 5 rights. IV patency established. IV site checked: no pain, redness, or swelling. IV flushed thoroughly pre- and post-medication administration. IVP given by RN. --09:33 Negra Tam R.N. 09:33 06/26/16. ( Pt ambulated to ). --09:33 Negra Tam R.N. 09:42 06/26/16. BP: 146/68. HR: 70. RR: 18. O2 saturation: 98% on nasal cannula at 2 liters/minute. Pain level now: 01/19. --09:43 Negra Tam R.N. 09:45 06/26/2016 Percocet (Oxycodone-Acetaminophen) PO 5/325 mg Tablets 2 tab given. Allergies verified, confirmed 5 rights and sedative warning given to the patient. --09:45 Negra Tam R.N. 11:12 06/26/2016 Site #[address] upon transfer; patent, no pain and no signs of infection or infiltration. Flushed with 10 mL saline; flushes easily. --12:12 Negra Tam R.N. DISPOSITION / DISCHARGE Transferred to [facility]. Transported via ambulance by nurse with monitor. Patient's personal items include: pants, socks, shoes and glasses; items were placed in belongings bag and transported with the patient. --09:52 Negra Tam R.N. 11:06 06/26/16. BP: 140/70. HR: 68. RR: 18. O2 saturation: 95% on nasal cannula at 2 liters/minute. Temp: 98.4 F (oral). Pain level now: 12/19. --11:06 Negra Tam R.N. Departure time: 11:Jun 26 2016. Condition at departure: improved and stable. Report was given to a nurse. Report included patient's care, treatment, medications, reviewed medication reconcilliation, and condition (including any recent changes or anticipated changes). Report was acknowledged and care was transferred. --12:10 Negra Tam R.N. Locked/Released at 06/26/2016 12:12 by Negra Tam R.N.
--- NOTE | 2016-06-26 09:02 | ED CLINICAL REPORT ---
Clinical Report - Physicians/Mid Levels [facility] [address] [place] [address] 06/26/2016 6:09 Patient: SERENA CURIEL Time Seen: 0620. Arrived- By ambulance. Historian- patient. HISTORY OF PRESENT ILLNESS Chief Complaint: DYSPNEA. This started 0300 today. 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 It was abrupt in onset and has been constant but is not gone now. The dyspnea is described as moderate. (worse with eating. better with rest and sitting up.). No cough, sputum production, fever, sweating episodes or wheezing. No chest pain or discomfort, calf pain, foot swelling or anxiety. No dizziness, tingling, numbness or palpitations. (reports bilateral leg swelling. Positive sick contact prior to procedure done. Patient reports acquaintance could have similar symptoms). Similar symptoms previously: Recent medical care: The patient was seen recently in a clinic and hospitalized. ( patient procedure recently had a procedure done to his heart. Patient describes cardiac ablation procedure. This was done at [place] in [facility] REVIEW OF SYSTEMS The patient has not had weight loss. No muscle aches. Positive for cough and congestion. All systems otherwise negative, except as recorded above. PAST HISTORY See nurses notes. A. fib. Risk factors for DVT/pulmonary embolism- recent surgery. Denies the following risk factors for DVT/PE - history of DVT and pulmonary embolism, recent [place], congestive heart failure and clotting disorder. Denies the following risk factors for DVT/PE - estrogens, obesity, immobility, advanced in age and vena cava filter. SOCIAL HISTORY Smoker- current status unknown (quit in 1986). Alcohol use. (quit in 1986). No drug use. No recent travel. Is a local resident. PHYSICAL EXAM Appearance: Alert. Patient in mild distress. Eyes: Pupils equal, round and reactive to light. Eyes normal inspection. ENT: Ears normal. Nose normal. Pharynx normal. Uvula midline. Neck: Normal inspection. No jugular venous distention. Neck supple. CVS: Normal heart rate and rhythm. Heart sounds normal. Pulses normal. Respiratory: No respiratory distress. Breath sounds normal. Abdomen: Soft and nontender. No organomegaly. (well healed the midline abdominal scar). Back: Normal inspection. Skin: Skin warm and dry. Normal skin color. No rash. Normal skin turgor. Extremities: Extremities exhibit normal ROM. No lower extremity edema. LABS, X-RAYS, AND EKG EKG: Normal sinus rhythm. Rate: 70. Normal P waves. Normal RICARDO. Normal QRS complex. Normal axis. Normal ST and T waves, QT and QTc. bifascicular block. Changes present when compared to prior EKG. (improved. no afib.) No new ischemic changes present. The study has been interpreted contemporaneously by me. The study has been independently viewed by me. The EKG appears to be a good tracing. Chest X-ray: (elevated left hemidiaphragm. No acute changes from prior chest x-ray no consolidations.). Views: PA. Technique: good. The X-rays were independently viewed by me and interpreted contemporaneously by me. Laboratory Tests: CBC w Diff: (ROSEMARIE: 06/26/2016 06:20) ( Mscvd 06/26/2016 06:36) Final results Test Result Flag Units (Reference) WHITE BLOOD COUNT 11.6 H K/uL (4.5-11.5) RED BLOOD COUNT 5.27 M/uL (4.50-5.90) HEMOGLOBIN 13.5 gm/dL (13.5-17.5) HEMATOCRIT 43.0 % (41.0-53.0) MEAN CELL VOLUME 82 fL (80-100) MEAN CORPUSCULAR HGB 26 pg (26-34) MEAN CORPUSCULAR HGB CONC 32 g/dL (31-37) RED CELL DISTRIBUTION WIDTH 15.8 H % (11.6-14.8) PLATELET COUNT 218 K/uL (150-400) NEUTROPHIL % 73.8 % (50-75) LYMPH % 14.4 L % (25-40) MONO % 10.4 % (3-14) EOSINOPHIL % 1.1 % (0-4) BASOPHIL % 0.3 % (0-2) PT with INR: (ROSEMARIE: 06/26/2016 06:20) ( MsgRcvd 06/26/2016 07:40) Final results Test Result Flag Units (Reference) INR 3.1 H (0.8-1.2) Low Intensity Therapy: INR 1.5-2.0 PT range 18.5-23.1Mod.Intensity Therapy: INR 2.0-3.0 PT range 23.1-31.5High Intensity Therapy: INR 2.5-3.5 PT range 27.4-35.5High Intensity Therapy 2: INR 3.0-4.0 PT range 31.5-39.3 D-DIMER QUANTITATIVE 0.43 ug/mLFEU (0.27-0.52) The primary value of this quantitative assay relates toits negative predictive value (i.e. exclusion) of pulmonaryembolism/deep vein thrombosis/DIC.Elevated levels of d-dimer may also occur with:, age, cancer, inflammation, liver disease,post-op, infection, hematoma, coronary disease, peripheralarteriopathy, bleeding disorders and thrombolytic treatment.Results should be correlated with other clinical andradiological data.Testing Methodology: Latex Immunoassay APTT 46 H SECONDS (24-34) BNP: (ROSEMARIE: 06/26/2016 06:20) ( MsgRcvd 06/26/2016 06:48) Final results Test Result Flag Units (Reference) B-TYPE NATRIURETIC PEPTIDE 47.5 pg/ml (5-100) CMP: (ROSEMARIE: 06/26/2016 06:20) ( MsgRcvd 06/26/2016 06:48) Final results Test Result Flag Units (Reference) GLUCOSE 120 H mg/dL (70-110) BUN 37 H mg/dL (7-18) CREATININE 0.9 mg/dL (0.6-1.3) Estimated GFR >60 mL/min Estimated GFR- >60 mL/min Note: Persistent reduction over 3 months in eGFR<60 mL/min/1.73 m2 defines CKD. Patients with eGFR values>=60 mL/min/1.73 m2 may also have CKD if evidence ofpersistent proteinuria. Additional information may be foundat www.kidney.org. SODIUM 142 mmol/L (136-145) POTASSIUM 4.4 mmol/L (3.5-5.1) CHLORIDE 103 mmol/L (98-107) CARBON DIOXIDE 35 H mmol/L (21-32) CALCIUM 8.2 L mg/dL (8.5-10.1) TOTAL PROTEIN 7.1 g/dL (6.4-8.2) ALBUMIN 3.3 g/dL (3.3-5.0) BILIRUBIN, TOTAL 0.4 mg/dL (0.0-1.0) ALKALINE PHOSPHATASE 88 U/L (46-116) AST (SGOT) 49 H U/L (15-37) ALT (SGPT) 45 U/L (12-78) TROPONIN I 0.30 ng/mL (0.00-1.5) TROPONIN REFERENCE RANGE:<0.1 NEGATIVE0.1-1.5 INDETERMINANT>1.5 POSITIVE . PROGRESS AND PROCEDURES Course of Care: The patient is a pleasant 76-year-old male with past medical history significant for atrial fibrillation with recent ablation several days ago presenting for evaluation of shortness of breath. Shortness of breath was sudden in onset. At this time differential diagnosis includes pulmonary embolism, acute myocardial infarction, and pneumonia. Patient could also have viral type upper respiratory tract infection slight amount of wheezing noted on auscultation. Breathing treatment will be provided. Laboratory studies including complete blood count, chemistries, troponin as well as d-dimer have been ordered. Patient is agreeable to the treatment and plan. EKG has been reviewed. No acute changes from prior EKG. Patient's workup so far has been remarkable for a elevated troponin at 0.30. This falls in the laboratory studies indeterminate range. Prior troponin laboratories tests have been reviewed on patient's last visits. On those visits, patient's troponin was noted to be normal. An concern for possible non-ST segment elevation myocardial infarction. Can't consult to cardiology placed. Discussed findings with patient. Patient is agreeable to the treatment and plan. Cardiology was contacted. Was concerned about possible non-STEMI. I discussed with cardiology in regards to the recommendation on anticoagulation. Recommended patient be placed on a heparin drip. After further reviewing the patient's chart they noted the patient's procedure date to have been several days ago. In discussion with Dr.Vitello, she had recommended to follow up on a second troponin instead of giving heparin at this point. We'll consult cardiology once the second troponin has returned. Patient's was informed of the machine feed operator's recommendations. Patient reports that his symptoms have significantly improved since arrival in the emergency department. Patient is resting in bed and in no acute distress. contacted Dr. Brown about second troponin. Troponin has decreased since first troponin was drawn. Cardiology recommended no anticoagulation at this time. Patient will be evaluated at their facility. Transfer was arranged. Informed written consent obtained for the transfer. Patient is agreeable to the treatment plan. I discussed with patient in regards to his workup, diagnosis, plan of care. All questions answered. Critical care performed (60 minutes). Time is exclusive of separately billable procedures. Time includes: direct patient care, patient reassessment, coordination of patient care, interpretation of data (laboratory data and chest xrays), review of patient's medical records, medical consultation and documentation of patient care. Consult obtained. cardiology. CLINICAL IMPRESSION NonSTEMI Acute dyspnea. (Electronically signed by Chava Mcneill Dr. 06/30/2016 5:19)
--- NOTE | 2016-06-30 05:19 | ED DISCHARGE INSTRUCTIONS ---
Patient: SERENA CURIEL General Instructions [facility] VisitID: [id number] [address] [place] [address] 76y, M Registration Date/Time: 06/26/2016 NonSTEMI Acute dyspnea. (Electronically signed by Chava Mcneill Dr. 06/30/2016 5:19)
--- NOTE | 2016-06-30 05:19 | ED DISCHARGE INSTRUCTIONS ---
Patient: SERENA CURIEL General Instructions [facility] VisitID: [id number] [address] [place] [address] 76y, M Registration Date/Time: 06/26/2016 NonSTEMI Acute dyspnea. (Electronically signed by Chava Mcneill Dr. 06/30/2016 5:19)
--- NOTE | 2016-06-30 05:19 | ED MED RECONCILIATION SUMMARY ---
Patient: SERENA CURIEL Medication Reconciliation Report [facility] VisitID: [id number] [address] [place] [address] 76y, M Registration Date/Time: 06/26/2016 Weight: 104.3 kg Height/Length: 67 in. BMI: 36.0 ALLERGIES: No Known Drug Allergy The patient's Home Medications are listed below: THE FOLLOWING MEDICATIONS NEED TO BE RECONCILED: Diltiazem HCl Oral Dyazide Oral (37.5-25 mg) 1 capsule, daily Endocet Oral (10-325 mg) 1 tablet, 4 x daily Furosemide Oral Gabapentin Oral Lisinopril Oral 5 mg, daily MetFORMIN HCl Oral Oxycodone-Acetaminophen Oral 10/325 mg, 4x a day Pantoprazole Sodium Oral Pravastatin Sodium Oral ProAir HFA Inhalation Triamterene-HCTZ Oral Warfarin Sodium Oral The source(s) of the original Home Medication information: patient The following Medications were given to the patient in the Emergency Department: Aspirin [PO] PO 325 mg, administered: 06/26/2016 7:22:00 AM Lasix [IVP] IVP 20 mg, administered: 06/26/2016 9:33:00 AM Percocet [PO] PO 2 tab, administered: 06/26/2016 9:45:00 AM The following Medications were prescribed to the patient: None.
--- NOTE | 2016-06-30 05:19 | ED MED RECONCILIATION SUMMARY ---
Patient: SERENA CURIEL Medication Reconciliation Report [facility] VisitID: [id number] [address] [place] [address] 76y, M Registration Date/Time: 06/26/2016 Weight: 104.3 kg Height/Length: 67 in. BMI: 36.0 ALLERGIES: No Known Drug Allergy The patient's Home Medications are listed below: THE FOLLOWING MEDICATIONS NEED TO BE RECONCILED: Diltiazem HCl Oral Dyazide Oral (37.5-25 mg) 1 capsule, daily Endocet Oral (10-325 mg) 1 tablet, 4 x daily Furosemide Oral Gabapentin Oral Lisinopril Oral 5 mg, daily MetFORMIN HCl Oral Oxycodone-Acetaminophen Oral 10/325 mg, 4x a day Pantoprazole Sodium Oral Pravastatin Sodium Oral ProAir HFA Inhalation Triamterene-HCTZ Oral Warfarin Sodium Oral The source(s) of the original Home Medication information: patient The following Medications were given to the patient in the Emergency Department: Aspirin [PO] PO 325 mg, administered: 06/26/2016 7:22:00 AM Lasix [IVP] IVP 20 mg, administered: 06/26/2016 9:33:00 AM Percocet [PO] PO 2 tab, administered: 06/26/2016 9:45:00 AM The following Medications were prescribed to the patient: None.
--- NOTE | 2016-06-30 05:19 | ED MAR SUMMARY ---
..... Medication Administration Record [facility] [address] [place] [address] Patient: SERENA CURIEL Visit ID: [id number] 76y, M Weight: 104.3 kg Height/Length: 67 in BMI: 36 ALLERGIES: No Known Drug Allergy Given 07:22 06/26/2016 Negra Tam R.N. Medication Administered: ASPIRIN [PO], Dose: 325 mg PO. Medication Ordered: Aspirin PO 325 mg (Do not crush or chew, NOW). Given 09:33 06/26/2016 Negra Tam RKelly Medication Administered: LASIX [IVP], Dose: 20 mg IVP over 2 minute(s), Site: #1 left AC. Medication Ordered: Lasix IV 20 mg (NOW). Given 09:45 06/26/2016 Negra Tam, RCesarN. Medication Administered: PERCOCET [PO] (OXYCODONE-ACETAMINOPHEN), Dose: 2 tab 5/325 mg Tablets PO. Medication Ordered: Percocet PO 2 tabs (HIGH ALERT MEDICATION, NOW).
--- NOTE | 2016-06-30 05:19 | ED MAR SUMMARY ---
..... Medication Administration Record [facility] [address] [place] [address] Patient: SERENA CURIEL Visit ID: [id number] 76y, M Weight: 104.3 kg Height/Length: 67 in BMI: 36 ALLERGIES: No Known Drug Allergy Given 07:22 06/26/2016 Negra Tam R.N. Medication Administered: ASPIRIN [PO], Dose: 325 mg PO. Medication Ordered: Aspirin PO 325 mg (Do not crush or chew, NOW). Given 09:33 06/26/2016 Negra Tam RKelly Medication Administered: LASIX [IVP], Dose: 20 mg IVP over 2 minute(s), Site: #1 left AC. Medication Ordered: Lasix IV 20 mg (NOW). Given 09:45 06/26/2016 Negra Tam, RCesarN. Medication Administered: PERCOCET [PO] (OXYCODONE-ACETAMINOPHEN), Dose: 2 tab 5/325 mg Tablets PO. Medication Ordered: Percocet PO 2 tabs (HIGH ALERT MEDICATION, NOW).
== END 2016-06-26 11:10 | disposition short-term general hospital (02) ==
LOC: ED SRH 06:03
DX: I21.4 Non-ST elevation (NSTEMI) myocardial infarction (principal); R06.00 Dyspnea, unspecified; I10 Essential (primary) hypertension; Z79.84 Long term (current) use of oral hypoglycemic drugs; Z79.899 Other long term (current) drug therapy
CPT/HCPCS: 90100; 90616; 91320; 91400; 91556; 91576; 94001; 94060; 95059

== ENCOUNTER 2016-07-05 11:36 | Outpatient (CLI) | payer OTHER ==
--- NOTE | 2016-07-05 14:05 | DIAGNOSTIC IMAGING REPORT ---
PROCEDURE: XR CHEST 2 VIEW INDICATION: SOB TECHNIQUE: PA and lateral views. COMPARISON: Compared to chest x-rays (06/11/2016, 05/30/2016, 02/15/2015. And 06/26/2016 FINDINGS: Stable chronic elevation of the left hemidiaphragm with chronic left basilar volume loss. Allowing for suboptimal inspiration, findings suggest mild cardiomegaly with pulmonary vascular congestion and interstitial changes. Mediastinum is normal. Marked dextroscoliosis of the mid-thoracic spine. IMPRESSION: 1. Chronic elevation left hemidiaphragm with chronic left basilar volume loss. 2. Findings suggest mild cardiomegaly, congestion, and interstitial changes. Findings may be a reflection of suboptimal inspiration, consider mild congestive heart failure.
== END 2016-07-05 23:00 ==
LOC: LAB SRH 11:36
DX: R06.02 Shortness of breath (principal); R53.83 Other fatigue; I48.91 Unspecified atrial fibrillation
CPT/HCPCS: 90074; 90100; 91286; 91320; 91556; 95059